=== PATIENT | male | born 1945 | race Caucasian/White ===

== ENCOUNTER 2017-11-24 22:46 | Emergency (ER) | payer MEDICARE, MEDICAID ==
[2017-11-24 22:47] VITALS: BMI 34.4
[2017-11-24 23:02] VITALS: TEMP 98.9
--- NOTE | 2017-11-24 23:12 | ED PDOC ---
Arrival/HPI - General Chief Complaint: Chest Pain Time Seen by Provider: 11/24/17 23:08 Historian: Patient - History of Present Illness Narrative History of Present Illness (Text): 11/24/17 23:12 Tania Caballero is a 72 year old male, whose past medical history includes CAD with coronary stent, hypertension, and diabetes, who presents to the Emergency department complaining of mid-sternal chest pain radiating to his left arm tonight. Patient notes he had experienced some chest discomfort earlier, but notes it worsened tonight. Patient reports associated dyspnea. Patient states he takes Aspirin daily, but not taken it today yet. Patient denies any fever, chills, nausea, vomiting, diarrhea, urinary symptoms, back pain, neck pain, headache, dizziness, or any other complaints. PMD: Dr. Keyes Senior Military Analyst: Dr. Stephens Symptom Onset: Gradual Symptom Course: Unchanged Activities at Onset: Light Context: Home Past Medical History - Provider Review Nursing Documentation Reviewed: Yes - Infectious Disease Hx of Infectious Diseases: None - Cardiac Hx Coronary Artery Disease: Yes Hx Hypertension: Yes - Musculoskeletal/Rheumatological Hx Back Pain: Yes - Psychiatric Hx Substance Use: No Family/Social History - Physician Review Nursing Documentation Reviewed: Yes Family/Social History: Unknown Family HX Smoking Status: Former Smoker Hx Alcohol Use: No Hx Substance Use: No Allergies/Home Meds Allergies/Adverse Reactions: Allergies No Known Allergies Allergy (Verified 09/27/15 02:28) Review of Systems - Physician Review All systems were reviewed & negative as marked: Yes - Review of Systems Constitutional: Normal. absent: Fevers Eyes: Normal ENT: Normal Respiratory: SOB. absent: Cough Cardiovascular: Chest Pain Gastrointestinal: Normal. absent: Abdominal Pain, Diarrhea, Nausea, Vomiting Genitourinary Male: Normal. absent: Dysuria, Frequency, Hematuria, Urinary Output Changes Musculoskeletal: Normal. absent: Back Pain, Neck Pain Skin: Normal. absent: Rash Neurological: Normal. absent: Headache, Dizziness Endocrine: Normal Hemo/Lymphatic: Normal Psychiatric: Normal Physical Exam Vital Signs Reviewed: Yes Vital Signs Temp Pulse Resp BP Pulse Ox 11/24/17 23:01 98.9 F 95 H 20 151/94 H 97 Temperature: Afebrile Blood Pressure: Normal Pulse: Regular Respiratory Rate: Normal Appearance: Positive for: Well-Appearing, Non-Toxic, Comfortable Pain Distress: None Mental Status: Positive for: Alert and Oriented X 3 - Systems Exam Head: Present: Atraumatic, Normocephalic Pupils: Present: PERRL Extroacular Muscles: Present: EOMI Conjunctiva: Present: Normal Mouth: Present: Moist Mucous Membranes Neck: Present: Normal Range of Motion Respiratory/Chest: Present: Clear to Auscultation, Good Air Exchange. No: Respiratory Distress, Accessory Muscle Use Cardiovascular: Present: Regular Rate and Rhythm, Normal S1, S2. No: Murmurs Abdomen: No: Tenderness, Distention, Peritoneal Signs Back: Present: Normal Inspection Upper Extremity: Present: Normal Inspection. No: Cyanosis, Edema Lower Extremity: Present: Normal Inspection. No: Edema Neurological: Present: GCS=15, CN II-XII Intact, Speech Normal Skin: Present: Warm, Dry, Normal Color. No: Rashes Psychiatric: Present: Alert, Oriented x 3, Normal Insight, Normal Concentration Medical Decision Making ED Course and Treatment: 11/24/17 23:12 Impression: 72 year old male complaining of mid-sternal chest pain radiating to his left arm and dyspnea today. Plan: -- EKG -- Chest X-ray -- Labs, cardiac enzymes, BNP -- Reassess and disposition Progress Notes: Reviewed EKG, NSR at [address]pm[address] Non-specific ST/T wave changes. 11/25/17 00:52 Chest X-ray reviewed, shows no acute processes. 11/25/17 00:[address] Keyes, who is aware and agrees with plan. Accepts pt in to his service. Pt will go to Telemetry observation for chest pain. Requests Dr. Stephens on consult. 11/25/17 00:57 Discussed results and hospital admission plan with pt, pt states he does not wish to stay in the hospital. Pt states he would wants to go home. Pt will sign out against medical advice. The patient is choosing to leave against medical advice. I have personally explained to the patient that choosing to do so may result in permanent bodily harm or . I have discussed at great length that without further evaluation and monitoring there may be unforeseen circumstances and/or deterioration causing permanent bodily harm or as a result of their choice. The patient is alert, oriented, and shows the mental capacity to make clear decisions regarding the patients health care at this time. The patient continues to wish to leave against medical advice. In light of the patients decision to leave against medical advice, [facility] is aware of the importance to following up as instructed. The patient has been advised that they should return to the emergency room immediately if they change their mind at any time, or if their condition begins to change or worsen in any way. - Lab Interpretations Lab Results: 11/24/17 23:40 11/24/17 23:40 Lab Results 11/24/17 23:40: WBC 8.0, RBC 4.71, Hgb 12.8 L, Hct 36.7 L, MCV 77.9 L, MCH 27.2 , MCHC 34.9, RDW 13.5, Plt Count 201, MPV 9.9 11/24/17 23:40: Sodium 141, Potassium 3.7, Chloride 103, Carbon Dioxide 25, Anion Gap 17, BUN 13, Creatinine 0.8, Est GFR ( Amer) > 60, Est GFR (Non- Af Amer) > 60, Random Glucose 238 H, Calcium 9.4, Total Bilirubin 0.4, AST 57, ALT 45, Alkaline Phosphatase 66, Lactate Dehydrogenase 363, Total Creatine Kinase 119, Troponin I < 0.01, NT-Pro-B Natriuret Pep 23.0, Total Protein 7.2, Albumin 4.3, Globulin 2.9, Albumin/Globulin Ratio 1.5 11/24/17 23:40: PT 10.9, INR 0.96, APTT 28.8 I have reviewed the lab results: Yes - RAD Interpretation Radiology Orders: 11/24/17 23:27 CHEST PORTABLE [RAD] Stat Yoke Presser: ED Physician - EKG Interpretation Interpreted by ED Physician: Yes Type: 12 lead EKG - Medication Orders Current Medication Orders: Discontinued Medications Aspirin (Aspirin) 325 mg PO ONCE STA Stop: 11/25/17 00:53 - Scribe Statement The provider has reviewed the documentation as recorded by the Tomy Markham Provider Scribe Attestation: All medical record entries made by the Scribe were at my direction and personally dictated by me. I have reviewed the chart and agree that the record accurately reflects my personal performance of the history, physical exam, medical decision making, and the department course for this patient. I have also personally directed, reviewed, and agree with the discharge instructions and disposition. Disposition/Present on Arrival - Present on Arrival Any Indicators Present on Arrival: No History of DVT/PE: No History of Uncontrolled Diabetes: No Urinary Catheter: No History of Decub. Ulcer: No History Surgical Site Infection Following: None - Disposition Have Diagnosis and Disposition been Completed?: Yes Diagnosis: Chest pain Disposition: AGAINST MEDICAL ADVICE Disposition Time: : Condition: STABLE Discharge Instructions (ExitCare): Chest Pain (ED) Referrals: Sourav Keyes MD [Primary Care Provider] - Follow up with primary Forms: [employer] (Romanian)
[2017-11-25 00:10] LABS: HEMOGLOBIN 12.8 g/dL (14.0-18.0); INR 0.96 (0.93-1.08); MEAN CELL VOLUME 77.9 fl (80.0-105.0); MEAN CORPUSCULAR HEMOGLOBIN 27.2 pg (25.0-35.0); MEAN CORPUSCULAR HGB CONC 34.9 g/dl (31.0-37.0); MEAN PLATELET VOLUME 9.9 fl (7.0-11.0); PARTIAL THROMBOPLASTIN TIME 28.8 Seconds (25.1-36.5); PROTHROMBIN TIME 10.9 SECONDS (9.4-12.5); RBC 4.71 10^6/uL (3.5-6.1); RED CELL DISTRIBUTION WIDTH 13.5 % (11.5-14.5)
[2017-11-25 00:16] LABS: ALB/GLOB RATIO 1.5 (1.1-1.8); ALBUMIN 4.3 g/dL (3.0-4.8); ALT/SGPT 45 U/L (7-56); AST/SGOT 57 U/L (17-59); BLOOD UREA NITROGEN 13 mg/dL (7-21); CALCIUM 9.4 mg/dL (8.4-10.5); GFR AFRICAN-AMERICAN > 60; GFR NON-AFRICAN AMERICAN > 60
[2017-11-25 00:28] LABS: TROPONIN I < 0.01 ng/mL
[2017-11-25 05:45] VITALS: RESP 18; O2SAT 100
[2017-11-25 05:47] VITALS: BP 142/87; PULSE 84
--- NOTE | 2017-11-25 09:11 | RAD ---
HISTORY: Chest pain. COMPARISON: No prior. FINDINGS: LUNGS: No active pulmonary disease. PLEURA: No significant pleural effusion identified, no pneumothorax apparent. CARDIOVASCULAR: No radiographic findings to suggest acute or significant cardiovascular disease. OSSEOUS STRUCTURES: No significant abnormalities. VISUALIZED UPPER ABDOMEN: Normal. OTHER FINDINGS: None. IMPRESSION: No active disease.
--- NOTE | 2017-11-25 19:23 | CARD ---
APPROVED REPORT EKG Measurement Heart [id number] <Conclusion> Normal sinus rhythm Possible Left atrial enlargement Borderline ECG
== END 2017-11-25 01:05 | disposition left against medical advice (07) ==
LOC: ED 22:46
DX: R07.9 Chest pain, unspecified (principal); I25.10 Atherosclerotic heart disease of native coronary artery without angina pectoris; E11.9 Type 2 diabetes mellitus without complications; I10 Essential (primary) hypertension; Z87.891 Personal history of nicotine dependence